=== PATIENT | female | born 1975 | race African-American/Black ===

== ENCOUNTER 2018-04-03 20:57 | Emergency (ER) | payer OTHER ==
[~2018-04-03] VITALS: Ht 154.9 cm; Wt 86.4 kg
[2018-04-03 21:05] VITALS: BP 132/77; PULSE 94; TEMP 98.8
[2018-04-03] MEDS ORDERED: PRINIVIL10 MG PO (21:47)
[2018-04-03] MEDS ORDERED: AMOXICILLIN 50500 MG PO (22:25)
== END 2018-04-03 22:56 | disposition home or self-care (01) ==
LOC: COL.ER 20:57
DX: J02.0 Streptococcal pharyngitis (principal); I10 Essential (primary) hypertension; Z90.710 Acquired absence of both cervix and uterus

== ENCOUNTER 2018-07-21 17:09 | Emergency (ER) | payer OTHER ==
[~2018-07-21] VITALS: Ht 157.5 cm; Wt 95.5 kg
[~2018-07-21 17:09] MED LIST: AMOXICILLIN 50500 MG PO; PRINIVIL10 MG PO
[2018-07-21 17:14] VITALS: TEMP 98.9
[2018-07-21] MEDS ORDERED: DULCOLAX STOOL100 MG PO (17:32)
[2018-07-21] MEDS ORDERED: NATURAL IRON65 MG PO (17:33)
[2018-07-21 18:49] VITALS: BP 143/81; PULSE 82
== END 2018-07-21 18:50 | disposition home or self-care (01) ==
LOC: COL.ER 17:09
DX: S46.911A Strain of unspecified muscle, fascia and tendon at shoulder and upper arm level, right arm, initial encounter (principal); S50.01XA Contusion of right elbow, initial encounter; I10 Essential (primary) hypertension; W00.0XXA Fall on same level due to ice and snow, initial encounter; Y92.009 Unspecified place in unspecified non-institutional (private) residence as the place of occurrence of the external cause